=== PATIENT | female | born 1995 | race Caucasian/White ===

== ENCOUNTER 2017-03-21 08:31 | Outpatient (CLI) | payer OTHER ==
[2014-06-18 21:32] VITALS: BP 123/59
== END 2017-03-21 08:32 ==
LOC: OUT 08:31
PROVIDERS: ATTEND General Practice
DX: Z00.00 Encounter for general adult medical examination without abnormal findings (principal)
CPT/HCPCS: 99213

== ENCOUNTER 2018-10-30 19:59 | Emergency (ER) | payer OTHER ==
--- NOTE | 2018-10-30 20:26 | ED Physician Documentation ---
General Adult - HPI Stated Complaint: Sore throat, possible FB Chief Complaint: General Adult Additional Information: Patient presents to ED with a 2 day history of increasing sore throat, fever (101.0), nausea and nasal congestion. Onset: days ago (2) Timing: still present, worse Severity: mild - ROS CONST: fever EYES/ENT: sore throat, nasal drainage, nasal congestion CVS/RESP: denies: shortness of breath, cough GI/: vomiting, nausea MS/SKIN/LYMPH: none NEURO/PSYCH: headache - PAST HX Past History: none Other History: none Surgeries/Procedures: none Allergies/Adverse Reactions: Allergies Allergy/AdvReac Type Severity Reaction Status Date / Time No Known Allergies Allergy Verified 06/18/14 20:29 Home Medications: Ambulatory Orders Medication Instructions Recorded Hydrochlorothiazide [Hydrodiuril] 25 mg PO D 06/18/14 Sertraline HCl [Zoloft] 25 mg PO D 06/18/14 Amoxicillin/Potassium Clav 1 each PO BID #14 tablet 10/30/18 [Augmentin 875-125 Tablet] Ondansetron HCl Rapdis [Zofran Odt] 4 mg PO Q8 PRN #20 tab 10/30/18 - SOCIAL HX Smoking History: non-smoker Alcohol Use: none Drug Use: none - FAMILY HX Family History: No - VITAL SIGNS Vital Signs: Vital Signs Temp Pulse Resp BP Pulse Ox 97.7 F 100 H 14 111/72 98 10/30/18 19:59 10/30/18 19:59 10/30/18 19:59 10/30/18 19:59 10/30/18 19:59 - REVIEWED ASSESSMENTS Nursing Assessment Reviewed: Yes Vitals Reviewed: Yes ED Results Lab/Radiology - Orders Orders: ED Orders Category Date Time Status BMP [BMP] Routine Lab 10/30/18 Ordered CBC/PLATELET/DIFF Routine Lab 10/30/18 Ordered GRP A STREP SCREEN Stat Lab 10/30/18 Ordered INFLUENZA A&B Stat Lab 10/30/18 Uncollected Ondansetron HCl Rapdis [Zofran Odt] Med 10/30/18 20:20 Once 4 mg PO NOW ONE General Adult Physical Exam - PHYSICAL EXAM GENERAL APPEARANCE: no distress EENT: LOLA NECK: normal inspection, supple RESPIRATORY: no resp distress, chest non-tender, breath sounds normal CVS: reg rate & rhythm, heart sounds normal ABDOMEN: soft, normal bowel sounds SKIN: warm/dry, normal color EXTREMITIES: non-tender, normal range of motion, no evidence of injury NEURO: oriented X3, CN's nml as tested Discharge Clincal Impression: Pharyngitis Qualifiers: Pharyngitis/tonsillitis etiology: other specified organisms Qualified Code(s): J02.8 - Acute pharyngitis due to other specified organisms Prescriptions: Amoxicillin/Potassium Clav [Augmentin 875-125 Tablet] 1 each PO BID #14 tablet Ondansetron HCl Rapdis [Zofran Odt] 4 mg PO Q8 PRN #20 tab PRN Reason: nausea/vomiting Referrals: Clark Cash MD [Primary Care Provider] - 2 Days Additional Instructions: 1. Take antibiotics as prescribed 2. Zofran as needed for nausea 3. Salt water gargles after each meal/snacks 4. Tylenol and/or Ibuprofen as needed for pain/fever 5. Folllow up with PCP within 1 week 6. Return to ER for new or worsening symptoms. Condition: Stable Disposition: 01 HOME, SELF-CARE Decision to Admit: NO Date of Decison to Admit: 10/30/18 Decision Time: 21:17
[2018-10-30 21:11] LABS: BASOPHILS % 0.7 (0.0-1.5); EOSINOPHILS % 3.1 % (0.0-6.8); MEAN CORPUSCULAR HEMOGLOBIN 29.1 pg (28.0-34.0); NEUTROPHILS # 3.5 # k/uL (1.4-7.7)
[2018-10-30 21:17] LABS: eGFR (Non-African) > 60
[2018-10-30] MEDS: ONDANSETRON HCL 4 MG TAB.RAPDIS PO ONE (21:29)
[2018-10-30] MEDS: AMOXICILLIN/POT 875/125 1 EACH PO ONE (21:29)
[2018-10-30 22:38] VITALS: BP 114/71
== END 2018-10-30 21:31 | disposition home or self-care (01) ==
LOC: ED 19:59
DX: J02.8 Acute pharyngitis due to other specified organisms (principal)
CPT/HCPCS: 36415; 80048; 85025; 87070; 87400; 87880; 99283; A9270

== ENCOUNTER 2018-12-13 11:32 | Emergency (ER) | payer OTHER ==
--- NOTE | 2018-12-13 11:48 | ED Physician Documentation ---
Abdominal Pain - HISTORIAN Historian: patient - HPI Stated Complaint: abdominal pain and lower back and upper leg pain x 1 day Chief Complaint: General Adult Onset: days ago (1) Duration: constant Timing: still present Context: denies: out of country travel, bad food, recent trauma Severity: mild Quality: pain Associated Symptoms: nausea, vomiting. denies: fever, chills, bloody emesis, diarrhea, bloody stools, loss of appetite, chest pain, testicular pain, back pain Exacerbated by: nothing Relieved by: nothing Further Comments: yes (she reports yesterday she started with lower abdominal pain and upper leg pain. Today she was noting low back pain mostly on left side. Denies any injury. She did start her period yesterday. She has had nausea and x 2 episodes of vomiting. No fever. No sick contacts. No food exposures that she is aware of. She denies any meds OTC for the pain. She denies a rash .) - ROS CONST: no problems GI/: denies: constipation CVS/RESP: none EYES/ENT: none MS/SKIN/LYMPH: none NEURO/PSYCH: none - SOCIAL HX Smoking History: non-smoker Alcohol Use: none Drug Use: none - FAMILY HX Family History: none - PAST HX Past History: none Ischemic Bowel Risk Factors: none Other History: none Surgeries/Procedures: none Immunizations: UTD Home Medications: Ambulatory Orders Medication Instructions Recorded Escitalopram Oxalate [Lexapro] 20 mg PO DAILY 12/13/18 Levothyroxine Sodium [Euthyrox] 100 mcg PO DAILY 12/13/18 Minocycline HCl [Minocin] 100 mg PO DAILY 12/13/18 Topiramate [Topamax] 50 mg PO BID 12/13/18 Allergies/Adverse Reactions: Allergies Allergy/AdvReac Type Severity Reaction Status Date / Time No Known Allergies Allergy Verified 12/13/18 12:35 - VITAL SIGNS Vital Signs: Vital Signs Temp Pulse Resp BP Pulse Ox 97.3 F L 72 18 96/51 100 12/13/18 11:35 12/13/18 13:35 12/13/18 11:35 12/13/18 13:35 12/13/18 11:35 - REVIEWED ASSESSMENTS Nursing Assessment Reviewed: Yes Vitals Reviewed: Yes Progress - Progress Progress: 1230: states pain is improved - although would like med for nausea. DG 1300: nausea is improved and pain continues to be improved although not gone. DG 1335: results discussed and plan - pt and friend agree DG ED Results Lab/Radiology - Lab Results Lab Results: Lab Results 12/13/18 12/13/18 12/13/18 12:00 12:00 11:48 WBC RBC Hgb Hct MCV MCH MCHC RDW Plt Count Neut % (Auto) Lymph % (Auto) Saline % (Auto) Eos % (Auto) Baso % (Auto) Neut # (Auto) Lymph # (Auto) Saline # (Auto) Eos # (Auto) Baso # (Auto) Sodium 137 mmol/L mmol/L (137-145) Potassium 4.1 mmol/L mmol/L (3.5-5.1) Chloride 104 mmol/L mmol/L (98-107) Carbon Dioxide 27 mmol/L mmol/L (22-30) BUN 11 mg/dL mg/dL (7-17) Creatinine 0.73 mg/dL mg/dL (0.52-1.04) Estimated Creat Clear 243 Est GFR ( Amer) > 60 (60 - ) Est GFR (Non-Af Amer) > 60 (60 - ) Glucose 92 mg/dL mg/dL (74-106) Calcium 9.4 mg/dL mg/dL (8.4-10.2) Total Bilirubin 0.3 mg/dL mg/dL (0.2-1.3) AST 28 U/L U/L (15-46) ALT 23 U/L U/L (0-35) Alkaline Phosphatase 66 U/L U/L (38-126) Total Protein 8.0 g/dL g/dL (6.3-8.2) Albumin 4.2 g/dL g/dL (3.5-5.0) Urine Color Yellow (YELLOW) Urine Appearance Clear (CLEAR) Urine pH 5.5 (5.0 - 8.0) Ur Specific [place] 1.020 (1.010-1.030) Urine Protein Negative mg/dL mg/dL (NEGATIVE) Urine Ketones Negative mg/dL mg/dL (NEGATIVE) Urine Occult Blood 2+ H (NEGATIVE) Urine Nitrite Negative (NEGATIVE) Urine Bilirubin Negative (NEGATIVE) Urine Urobilinogen 0.2 Eu Eu (0.2-1.0) Ur Leukocyte Esterase Trace H (NEGATIVE) Urine Glucose Negative mg/dL mg/dL (NEGATIVE) Urine HCG, Qual Negative (NEGATIVE) 12/13/18 11:48 WBC 7.60 K/ul K/ul (4.00-12.00) RBC 4.69 M/ul M/ul (3.90-5.20) Hgb 13.7 g/dL g/dL (11.5-16.0) Hct 40.4 % % (34.5-46.5) MCV 86.0 fl fl (80.0-100.0) MCH 29.3 pg pg (28.0-34.0) MCHC 34.0 g/dL g/dL (30.0-36.0) RDW 12.9 % % (11.3-14.3) Plt Count 310 K/mm3 K/mm3 (130-400) Neut % (Auto) 63.8 % % (39.0-79.0) Lymph % (Auto) 27.2 % % (16.0-50.0) Saline % (Auto) 6.5 % % (0.0-11.0) Eos % (Auto) 1.5 % % (0.0-6.8) Baso % (Auto) 1.0 % % (0.0-1.5) Neut # (Auto) 4.8 # k/uL # k/uL (1.4-7.7) Lymph # (Auto) 2.1 # k/uL # k/uL (0.6-4.0) Saline # (Auto) 0.5 # k/uL # k/uL (0.0-0.9) Eos # (Auto) 0.1 # k/uL # k/uL (0.0-0.6) Baso # (Auto) 0.1 # k/uL # k/uL (0.0-0.5) Sodium Potassium Chloride Carbon Dioxide BUN Creatinine Estimated Creat Clear Est GFR ( Amer) Est GFR (Non-Af Amer) Glucose Calcium Total Bilirubin AST ALT Alkaline Phosphatase Total Protein Albumin Urine Color Urine Appearance Urine pH Ur Specific [place] Urine Protein Urine Ketones Urine Occult Blood Urine Nitrite Urine Bilirubin Urine Urobilinogen Ur Leukocyte Esterase Urine Glucose Urine HCG, Qual - Radiology Radiology Impressions: CT abdomen and pelvis with contrast History: Abdominal pain for 1 day Technique: Helically acquired images were obtained from the hemidiaphragms to the pelvic floor following IV contrast. Findings: There is diffuse hepatic steatosis. No focal hepatic masses are noted. The spleen, adrenal glands, pancreas, gallbladder and kidneys are unremarkable. The appendix is visualized and appears normal. There are several small lymph nodes within the mesentery at the right lower quadrant consistent with mesenteric adenitis. The abdominal aorta is normal in caliber. The uterus, ovaries and bladder are unremarkable. There is no free fluid in the abdomen or pelvis. No osseous abnormalities are noted. Lung bases are clear. Impression: Hepatic steatosis. Normal appendix. Several shotty lymph nodes within the mesentery at the right lower quadrant consistent with mild mesenteric adenitis. Electronically signed on Dec 13, 2018 1:21:45 PM CDT by: Amaya Lagunas - Orders Orders: ED Orders Category Date Time Status IV Started NOW Care 12/13/18 11:[address] ABD & PELVIS W/ CON Stat Exams 12/13/18 Taken CBC/PLATELET/DIFF Stat Lab 12/13/18 11:48 Completed CMP Stat Lab 12/13/18 11:48 Completed UA MACRO DIP ONLY Routine Lab 12/13/18 12:00 Completed URINE HCG Stat Lab 12/13/18 12:00 Completed 0.9 % Sodium Chloride [Normal Saline] 1,000 ml Med 12/13/18 11:49 Discontinued IV NOW Ketorolac Tromethamine [Toradol] Med 12/13/18 12:06 Discontinued 30 mg IV NOW ONE Ondansetron HCl/Pf [Zofran] Med 12/13/18 12:29 Discontinued 4 mg IVP NOW ONE Abdominal Pain Physical Exam - Physical Exam General Appearance: no acute distress, alert, other (laughing with discussion ) EENT: eye inspection normal, no signs of dehydration NECK: normal inspection RESPIRATORY: no resp distress, chest non-tender, breath sounds normal CVS: reg rate & rhythm, heart sounds normal ABDOMEN: soft, normal bowel sounds, no distension, tenderness (LLQ and RLQ ) BACK: normal inspection, no CVA tenderness SKIN: warm/dry, normal color EXTREMITIES: non-tender, normal range of motion, no evidence of injury, no edema NEURO: oriented X3 Vital Signs: Vital Signs Temp Pulse Resp BP Pulse Ox 97.3 F L 72 18 96/51 100 12/13/18 11:35 12/13/18 13:35 12/13/18 11:35 12/13/18 13:35 12/13/18 11:35 Discharge Clincal Impression: Adenitis Referrals: Clark Cash MD [Primary Care Provider] - 2 Days Comments: 1. Increase fluids 2. Tramadol 50 mg take 1 by mouth every 8 hours as needed for pain 3. Zofran 4 mg take 1 by mouth every 8 hours as needed for nausea 4. See PCP in 2 days 5. Return to ER for any increasing concerns Condition: Stable Disposition: 01 HOME, SELF-CARE Decision to Admit: NO Date of Decison to Admit: 12/13/18 Decision Time: 13:27
[2018-12-13 12:03] LABS: EOSINOPHILS % 1.5 % (0.0-6.8); MEAN CORPUSCULAR HEMOGLOBIN 29.3 pg (28.0-34.0); MONOCYTES % 6.5 % (0.0-11.0); NEUTROPHILS # 4.8 # k/uL (1.4-7.7)
[2018-12-13] MEDS: 0.9 % SODIUM CHLORIDE 1,000 ML IV ONE (12:12)
[2018-12-13] MEDS: KETOROLAC TROMETHAMINE 30 MG/1ML VIAL IV ONE (12:13)
[2018-12-13 12:24] LABS: eGFR (Non-African) > 60
[2018-12-13] MEDS: ONDANSETRON HCL/PF 4 MG/ 2ML VIAL IVP ONE (12:33)
[2018-12-13 13:38] VITALS: BP 96/51
[2018-12-13 14:03] LABS: APPEARANCE,URINE CLEAR (CLEAR); COLOR,URINE YELLOW (YELLOW); OCCULT BLOOD,URINE 2+ (NEGATIVE); PH URINE 5.5 (5.0 - 8.0); UROBILINOGEN URINE 0.2 Eu (0.2-1.0)
--- NOTE | 2018-12-14 06:58 | Diagnostic Imaging Report ---
NOELLE APODACA [facility] [id number] [facility] [address] [place], [place]. [address] Report Submission Date: Dec 13, 2018 1:21:45 PM CDT Patient Study Name: YULIYA LUCIANO Date: Dec 13, 2018 12:43:43 PM CDT Modality Type: CT\SR Gender: F Description: CT ABD PELVIS W/ CON : 89 Institution: [facility] Physician: NOELLE APODACA CT abdomen and pelvis with contrast History: Abdominal pain for 1 day Technique: Helically acquired images were obtained from the hemidiaphragms to the pelvic floor following IV contrast. Findings: There is diffuse hepatic steatosis. No focal hepatic masses are noted. The spleen, adrenal glands, pancreas, gallbladder and kidneys are unremarkable. The appendix is visualized and appears normal. There are several small lymph nodes within the mesentery at the right lower quadrant consistent with mesenteric adenitis. The abdominal aorta is normal in caliber. The uterus, ovaries and bladder are unremarkable. There is no free fluid in the abdomen or pelvis. No osseous abnormalities are noted. Lung bases are clear. Impression: Hepatic steatosis. Normal appendix. Several shotty lymph nodes within the mesentery at the right lower quadrant consistent with mild mesenteric adenitis. Electronically signed on Dec 13, 2018 1:21:45 PM CDT by: Amaya PARHAM
== END 2018-12-13 13:35 | disposition home or self-care (01) ==
LOC: ED 11:32
DX: I88.9 Nonspecific lymphadenitis, unspecified (principal)
CPT/HCPCS: 36415; 74177; 80053; 81002; 81025; 85025; 96374; 96375; 99283; 99284; J1885; J2405; J7030; Q9967; S1016

== ENCOUNTER 2019-04-21 13:22 | Emergency (ER) | payer OTHER ==
--- NOTE | 2019-04-21 13:33 | ED Physician Documentation ---
General Adult - HISTORIAN Historian: patient - HPI Stated Complaint: abscess areas bilateral arms and groin Chief Complaint: Skin Rash Onset: days ago (1) Timing: still present Severity: mild Further Comments: yes (She has the "sores' on and off but she notes last night the one on her right axilla was increasing in size and pain. No drainage from the area at this time. She has another in left axilla and two in groin area. NO fever. She has not had any other symptoms) - ROS CONST: no problems NEURO/PSYCH: denies: headache - PAST HX Past History: other (DM2 ) Surgeries/Procedures: other (neck ) Immunizations: UTD Allergies/Adverse Reactions: Allergies Allergy/AdvReac Type Severity Reaction Status Date / Time No Known Allergies Allergy Verified 04/21/19 13:45 Home Medications: Ambulatory Orders Medication Instructions Recorded Escitalopram Oxalate [Lexapro] 20 mg PO DAILY 12/13/18 Levothyroxine Sodium [Euthyrox] 100 mcg PO DAILY 12/13/18 Minocycline HCl [Minocin] 100 mg PO DAILY 12/13/18 Topiramate [Topamax] 50 mg PO BID 12/13/18 Metformin HCl [Glucophage] 1,000 mg PO BID 04/21/19 - SOCIAL HX Smoking History: non-smoker Alcohol Use: none Drug Use: none - FAMILY HX Family History: No - VITAL SIGNS Vital Signs: Vital Signs Temp Pulse Resp BP Pulse Ox 96/51 12/13/18 13:35 - REVIEWED ASSESSMENTS Nursing Assessment Reviewed: Yes Vitals Reviewed: Yes General Adult Physical Exam - PHYSICAL EXAM GENERAL APPEARANCE: no distress EENT: eye inspection normal, no signs of dehydration NECK: normal inspection RESPIRATORY: no resp distress, chest non-tender, breath sounds normal CVS: reg rate & rhythm, heart sounds normal, equal pulses ABDOMEN: soft, no distension SKIN: warm/dry, other (red raised area left axilla no drainage under the area. pain to palpation 3 cm x 2 cm red raisd. not firm. right axilla notes a small pin point with white drainage . Groin 3 small areas no drainage ) EXTREMITIES: non-tender, normal range of motion, no evidence of injury, no edema NEURO: oriented X3 Discharge Clincal Impression: Abscess Referrals: Clark Cash MD [Primary Care Provider] - 2 Days Comments: 1. Clindamycin 300 mg take 1 by mouth three times per day 2. Warm compress 3. clean areas 4. Follow up with PCP Monday 5. Return to ER for any increasing concerns Condition: Stable Disposition: 01 HOME, SELF-CARE Decision to Admit: NO Date of Decison to Admit: 04/21/19 Decision Time: 14:03
[2019-04-21 13:50] VITALS: BP 127/74
== END 2019-04-21 14:02 | disposition home or self-care (01) ==
LOC: ED 13:22
DX: L02.413 Cutaneous abscess of right upper limb (principal); L02.414 Cutaneous abscess of left upper limb; L02.214 Cutaneous abscess of groin
CPT/HCPCS: 99281; 99284

== ENCOUNTER 2019-06-17 15:59 | Outpatient (CLI) | payer SELFPAY ==
[2019-06-17 16:36] LABS: BASOPHILS % 0.3 % (0.0-1.5); NEUTROPHILS # 4.2 # k/uL (1.4-7.7)
[2019-06-17 16:44] LABS: HDL 31 mg/dL (>40); eGFR (Non-African) > 60
== END 2019-06-17 16:05 ==
LOC: LAB 15:59
PROVIDERS: ATTEND Dermatology MOHS-Micrographic Surgery
DX: Z79.899 Other long term (current) drug therapy (principal)
CPT/HCPCS: 80053; 80061; 82248; 85025; 86704; 86706; 86803; 87340